=== PATIENT | female | born 1980 | race Caucasian/White ===

== ENCOUNTER 2016-10-07 17:22 | Outpatient (CLI) | payer MEDICAID ==
[~2016-10-07] VITALS: Ht 147.3 cm; Wt 87.5 kg
[~2016-10-07 17:22] MED LIST: ACET500T98 PO; AMO500 PO
--- NOTE | 2016-10-07 17:51 | RADRPT ---
PROCEDURE: US biophysical profile. Ultrasound of the cervix. CLINICAL INDICATION: Abnormal vaginal bleeding. TECHNIQUE: Multiple sonographic images of the uterus were obtained. Transvaginal sonogra phy of the cervix was also performed. The images were reviewed on a PACS workstation. COMPARISON: No prior studies are available for comparison. FINDINGS: There is a single live intrauterine gestation. heart rate is 134 beats per minute. The position is cephalic. The placenta is anterior grade II with no abruption or previa. The SCOTTY is 11.8 cm. (Normal = 5-20 cm.) Transvaginal cervical length is 4.4 cm. Breathing Movement: 2 Gross Body Movement: 2 Tone: 2 Qualitative Amniotic Fluid Volume: 2 TOTAL: 8 IMPRESSION: 1. The biophysical score is 8/8. 2. Cervical length is 4.4 cm. RPTAT: QQ .Brian Santacruz MD, MD Date Time Electronically viewed and signed by .Brian Santacruz MD, on 10/07/2016 17:50 .R/
[2016-10-07 18:06] VITALS: Ht 147.3 cm; Wt 87.5 kg
[2016-10-07] MEDS ORDERED: PRENAT PO (18:08)
[2016-10-07 19:01] LABS: ADD UMIC YES; URINE BILIRUBIN (Dip) NEGATIVE (NEGATIVE); URINE BLOOD (Dip) TRACE (NEGATIVE); URINE COLOR LT. YELLOW (YELLOW); URINE GLUCOSE (Dip) NEGATIVE (NEGATIVE); URINE KETONES (Dip) NEGATIVE (NEGATIVE); URINE LEUKOCYTE ESTERASE (Dip) 1+ (NEGATIVE); URINE NITRITE (Dip) NEGATIVE (NEGATIVE); URINE TOTAL PROTEIN (Dip) NEGATIVE (NEGATIVE); URINE UROBILINOGEN (Dip) 0.2 E.U./dL (0.1-1.0)
[2016-10-07 19:14] LABS: BACTERIA,URINE FEW; SQUAMOUS EPITHELIAL CELL,UR MODERATE
--- NOTE | 2016-10-07 20:31 | TRIAGE ---
OB Triage Datetime Report Generated by CPN: 10/07/2016 20:30 Datetime: 10/07/2016 19:52 Vaginal Exam Membrane Status: Intact Datetime: 10/07/2016 19:24 Maternal Assessment Level of Consciousness: Fully Conscious Headache: Denies Blurred Vision: No Nausea/Vomiting: Denies RUQ Epigastric Pain: Denies Monitor Mode: External Pattern: Normal: <= 5 Contractions in 10 Minutes Resting Tone [place]: Relaxed Heart Rate FHR Baseline Rate: 140 Monitor Mode: External US FHR Baseline Changes: No Baseline Change Variability: Moderate 6-25 bpm Accelerations: 15X15 Decelerations: None Category: Category I Pain Assessment Pain Scale: 0 Pain Presence: None/Denies Pain Type: N/A Datetime: 10/07/2016 18:03 Stage of : OB Triage Assessment Type: Triage Maternal Assessment Level of Consciousness: Fully Conscious DTR's/Clonus: DTRs 2+; No Clonus Headache: Denies Blurred Vision: No Respiratory Effort: Unlabored; Regular Rhythm; Equal Expansion Breath Sounds, Left: Clear and Equal Breath Sounds, Right: Clear and Equal Nausea/Vomiting: Denies RUQ Epigastric Pain: Denies Facial Edema: None Temperature Route: Axillary Fall Risk Assessment History of Falling: (0) No Secondary Diagnosis: (0) No Ambulatory Aid: (0) Bedrest/Nurse Assist IV Therapy: (0) No Gait: (0) Normal/Bedrest/Immobile Mental Status: (0) Oriented to Own Ability Fall Score: 0 Fall Risk Score Definition: No Risk: No action required Labor Evaluation Frequency: 0 Monitor Mode: External Pattern: Normal: <= 5 Contractions in 10 Minutes Resting Tone [place]: Relaxed Heart Rate FHR Baseline Rate: 135 Monitor Mode: External US Variability: Moderate 6-25 bpm Decelerations: None Category: Category I Pain Assessment Pain Scale: 4 Pain Presence: Intermittent Pain Type: Cramping Pain Location: Abdomen Pain Goal: 3 Pain Relief Measures: Comfort Measures Datetime: 10/07/2016 17:58 Time of Arrival: 10/07/2016 17:10 EGA: 30.6 Arrived By: Ambulatory Arrived From: Dr. Office Chief Complaint: SENT FROM DR OFFICE TO EVALUATE FOR VAGINAL BLEEDING. DENIES LEAKING OF FLUID, S TATES SOME INTERMITTENT PAIN IN LOWER ABDOMINAL AREA. HX OF SHORT CERVIX AND BLEEDING WITH PREVIOUS PREGNANCIES Movement: Present Contractions: Denies/Absent Rupture of Membranes: Denies Vaginal Bleeding: Scant Vaginal Discharge: Denies Recent Sexual Intercouse: Denies Abdominal Trauma: Not Applicable Patient Complaints: Cramping Time Provider Notified: 10/07/2016 17:30 Provider Notified: WESTLEY Initial Plan: MONITOR, BPP/CL, PLACENTA
--- NOTE | 2016-10-07 22:07 | QN ---
Documentation Comment 36 years old with IUP at 31 weeks was sent from the clinic after she was seen today and reported to have spotting on and off for the past 3 days. Per patient had intercouse the day prior to her spotting day that started and continued on and off for the past 3 days and now stopped since this morning. She denies any LOF or contractions. reports some lower bilateral pain in the groins. She reports history of contractions in one of her prior pregnancies, received a dose of shot that stopped contractions and she delivered both prior pregnancies in [facility] at 40 weeks, [place]: A&O, NAD Abdomen: soft non tender, Fundal height is appropriate for [place] Extremities: no calf tenderness, no click, no edema CL: 4.4 cm Images reviewe BPP: 05/04 RH positive Urine Results - 72 Hrs Test 10/07/16 18:10 Urine Bacteria FEW Urine Bilirubin NEGATIVE (NEGATIVE) Urine Clarity SLIGHTLY CLOUDY (CLEAR) Urine Color LT. YELLOW (YELLOW) Urine Glucose NEGATIVE% (NEGATIVE) Urine Hemoglobin TRACE (NEGATIVE) Urine Ketones NEGATIVE (NEGATIVE) Urine Leukocyte Esterase 1+ (NEGATIVE) H Urine Microscopic RBC 2-5/HPF (0) Urine Microscopic WBC 2-5/HPF (0) Urine Nitrite NEGATIVE (NEGATIVE) Urine Specific [place] 1.025 (1.003-1.030) Urine Squamous Epithelial Cells MODERATE Urine Total Protein NEGATIVE (NEGATIVE) Urine Urobilinogen 0.2 E.U./dL (0.1-1.0) Urine pH 6.0 (5.0-9.0) SSE: No blood in the vault. cervix looks closed and long There is a moderate size ectropion on the cervix NST: No contractions on the monitor Cat 1 tracing. Appropriate for [place] Urine Results - 72 Hrs Test 10/07/16 18:10 Urine Bacteria FEW Urine Bilirubin NEGATIVE (NEGATIVE) Urine Clarity SLIGHTLY CLOUDY (CLEAR) Urine Color LT. YELLOW (YELLOW) Urine Glucose NEGATIVE% (NEGATIVE) Urine Hemoglobin TRACE (NEGATIVE) Urine Ketones NEGATIVE (NEGATIVE) Urine Leukocyte Esterase 1+ (NEGATIVE) H Urine Microscopic RBC 2-5/HPF (0) Urine Microscopic WBC 2-5/HPF (0) Urine Nitrite NEGATIVE (NEGATIVE) Urine Specific [place] 1.025 (1.003-1.030) Urine Squamous Epithelial Cells MODERATE Urine Total Protein NEGATIVE (NEGATIVE) Urine Urobilinogen 0.2 E.U./dL (0.1-1.0) Urine pH 6.0 (5.0-9.0) PROCEDURE: US biophysical profile. Ultrasound of the cervix. CLINICAL INDICATION: Abnormal vaginal bleeding. TECHNIQUE: Multiple sonographic images of the uterus were obtained. Transvaginal sonography of the cervix was also performed. The images were reviewed on a PACS workstation. COMPARISON: No prior studies are available for comparison. FINDINGS: There is a single live intrauterine gestation. heart rate is 134 beats per minute. The position is cephalic. The placenta is anterior grade II with no abruption or previa. The SCTOTY is 11.8 cm. (Normal = 5-20 cm.) Transvaginal cervical length is 4.4 cm. Breathing Movement: 2 Gross Body Movement: 2 Tone: 2 Qualitative Amniotic Fluid Volume: 2 TOTAL: 8 IMPRESSION: 1. The biophysical score is 8/8. 2. Cervical length is 4.4 cm. RPTAT: QQ Assessment: IUP at 31 weeks Post coital spotting , cervical ectropion RH postitve No evidence of previa or abruption No evidence of PTL DC home Strict labor precaution and kick counts follow up with her OB clinic in 2-3 days Patient verbalized understanding HANNY HYDE MD Oct 07, 2016 22:07
== END 2016-10-07 20:21 | disposition home or self-care (01) ==
LOC: OBT 17:22 → L-D 17:24 → OBT 20:21
PROVIDERS: ATTEND Obstetrics & Gynecology
DX: O26.853 Spotting complicating pregnancy, third trimester (principal); N93.0 Postcoital and contact bleeding; N86 Erosion and ectropion of cervix uteri; O60.03 Preterm labor without delivery, third trimester; O09.523 Supervision of elderly multigravida, third trimester; Z3A.31 31 weeks gestation of pregnancy
CPT/HCPCS: 76817; 76818; 81001; Z7500; 81003; G0463

== ENCOUNTER 2017-03-19 09:41 | Observation (INO) | payer MEDICAID ==
[2017-03-18 14:14] VITALS: Ht 149.9 cm; Wt 85.0 kg
[2017-03-19] VITALS (27 sets, daily range): BP systolic 106–137; BP diastolic 59–88; PULSE 56–84; RESP 12–25
[~2017-03-19] VITALS: Ht 149.9 cm; Wt 85.0 kg
[~2017-03-19 09:41] MED LIST changes: +ACETAMINOPHEN 1000 MG/100 ML IVPB ONE; +LIDOCAINE 2% (SDV) 5 ML INJ ONE; +PRENAT PO
[2017-03-19] MEDS ORDERED: BUPIVACAINE 0.25%/EPI (SDV) 30 ML INJ ONE (13:18)
[2017-03-19] MEDS ORDERED: PROPOFOL 60 ML ONE (13:24)
[2017-03-19] MEDS ORDERED: ROCURONIUM 50 MG INJ ONE (13:27)
[2017-03-19] MEDS ORDERED: FENTAnyl 50 MCG/ML VIAL ONE ×2 (13:28→13:51)
[2017-03-19] MEDS ORDERED: DEXAMETHASONE 4 MG/ML 1 ML INJ ONE (13:41)
[2017-03-19] MEDS ORDERED: KETOROLAC 30 MG INJ ONE (13:42)
[2017-03-19] MEDS ORDERED: PROPOFOL 20 ML ONE ×2 (14:22)
[2017-03-19] MEDS ORDERED: ONDANSETRON 4 MG INJ ONE ×2 (14:23→14:43)
--- NOTE | 2017-03-19 14:39 | PDOCDIS ---
Discharge Instructions CONDITION Patient Condition: Good HOME CARE INSTRUCTIONS: Diet Instructions: Regular ACTIVITY: Activity Restrictions: Slowly Increase Activity Rest between Activity Do not operate Machinery Bathing Restrictions: Shower FOLLOW UP/APPOINTMENTS Follow-up Plan Appointment clinic for postop follow-up in 1 week ORION CHRISTY MD Mar 19, 2017 14:39
[2017-03-19] MEDS ORDERED: MEPERIDINE 25 MG INJ ONE (14:43)
--- NOTE | 2017-03-19 14:43 | DS ---
Date/Time of Note Date/Time of Note DATE: 03/19/17 TIME: 14:41 Discharge Summary Admission/Discharge Info Admit Date/Time March 19, 2017 at 0 941 Discharge Date/Time March 20, 2017 at 8 AM Discharge Diagnosis Post minilaparotomy bilateral tubal ligation Procedures Minilaparotomy bilateral tubal ligation Hx of Present Illness 4 para 3 requests voluntary sterilization bilateral tubal ligation Hospital Course Satisfactory Home Meds Active Scripts Acetaminophen (Acetaminophen) 500 Mg Tablet, 500 MG PO Q6 Y for PAIN LEVEL 1-5 for 5 Days, #30 TAB Prov:CHIVO FREGOSO P ROBOT TECHNICIAN 07/19/16 Amoxicillin* (Amoxicillin*) 500 Mg Cap, 1 CAP PO BID, #20 CAP Prov:CHIVO FREGOSO P ROBOT TECHNICIAN 07/19/16 Reported Medications Multivit/Min/Fol Ac/Iron/Pren* ( S*) 1 Tab Tab, 1 TAB PO DAILY, TAB 10/07/16 Follow-up Plan Appointment clinic in 1 week for post operative check Primary Care Provider Care Physician No Primary Time spent on discharge: < 30 minutes ORION CHRISTY MD Mar 19, 2017 14:43
--- NOTE | 2017-03-19 14:47 | OPR ---
DATE OF OPERATION: PREOPERATIVE DIAGNOSIS: Request for voluntary sterilization, bilateral tubal ligation. POSTOPERATIVE DIAGNOSIS: Request for voluntary sterilization, bilateral tubal ligation. OPERATION PERFORMED: Minilaparotomy, bilateral tubal ligation. SURGEON: Orion Alcocer MD ANESTHESIA: General. ANESTHESIOLOGIST: DETAILS OF THE PROCEDURE: Under satisfactory general anesthesia the patient was prepped and draped and placed in the supine position. A small 2-inch Pfannenstiel incision was made, the incision fung ied through the subcutaneous tissue. Bleeders were brought under control with electrocautery. Fasc ia was incised to the length of the incision. Rectus muscle was divided in the midline. Peritoneum was exposed, entered through a transverse incision. Exploration of the abdomen revealed a normal s ize uterus, normal-appearing tubes and ovaries. Right fallopian tube was identified and the ampulla r section of the tube was grasped by a Tory. A loop was made. Suture material was used, #0 plai n catgut, was reinforced with the same suture material. The top of the loop 3/4 of an inch was exci sed. The cut end of the tube was cauterized and the specimen submitted to pathology. The same proc edure was performed for the opposite side. At this point in time the peritoneal cavity was irrigate d with warm saline. Sponge, needle and instrument were reported to be correct. Abdominal peritoneu m was closed with 2-0 chromic catgut. Rectus muscle was approximated with a few interrupted 2-0 chr omic catgut. Fascia was closed with #0 PDS in continuous fashion. Subcutaneous tissue was approxim ated with interrupted 2-0 chromic catgut. Skin was closed with 3-0 Monocryl subcuticular. Estimate d blood loss was less than 5 mL. The patient tolerated the procedure well, was transferred to the ecovery room in good condition. Dictated By: ORION GARCIA/LIANA Conf#: [id number] DID#: [id number]
[2017-03-19] MEDS ORDERED: FENTAnyl 50 MCG/ML VIAL IV PRN ×3 (15:00)
[2017-03-19] MEDS ORDERED: hydrALAzine 20 MG INJ IV PRN (15:00)
[2017-03-19] MEDS ORDERED: ONDANSETRON 4 MG INJ IV PRN (15:00)
[2017-03-19] MEDS ORDERED: OXYCODONE/ACETAMINOPHEN (5/325) TAB PO PRN ×2 (15:00)
[2017-03-19] MEDS ORDERED: MEPERIDINE 25 MG INJ IV PRN (15:00)
[2017-03-19] MEDS ORDERED: DIPHENHYDRAMINE 50 MG INJ IV PRN (15:00)
[2017-03-19] MEDS ORDERED: EPHEDrine SULFATE 50 MG/5 ML SYG IV PRN (15:00)
[2017-03-19] MEDS ORDERED: LABETALOL HCL 20MG INJ IV PRN (15:00)
[2017-03-19] MEDS ORDERED: METOCLOPRAMIDE 10 MG INJ IV PRN (15:00)
[2017-03-19] MEDS ORDERED: HYDROmorphONE (0.2 MG/ML) 10ML SYG IV PRN ×2 (15:00)
[2017-03-19] MEDS: HYDROmorphONE (0.2 MG/ML) 10ML SYG IV PRN ×2 (15:00→15:08)
[2017-03-19] MEDS ORDERED: BUTORPHANOL 2 MG INJ IV PRN (15:30)
== END 2017-03-20 08:00 | disposition home or self-care (01) ==
LOC: SDS 09:41 → REC 15:07 → SDS 15:07 → MS1 16:50
PROVIDERS: ADMIT Obstetrics & Gynecology; ATTEND Obstetrics & Gynecology
DX: Z30.2 Encounter for sterilization (principal); E66.01 Morbid (severe) obesity due to excess calories; Z68.37 Body mass index [BMI] 37.0-37.9, adult
CPT/HCPCS: 58600; 88302; J0131; J1100; J1170; J1885; J2175; J2405; J3010; Z7500; Z7512; Z7610; 99217; G0378

== ENCOUNTER 2019-04-17 19:53 | Emergency (ER) | payer MEDICAID, OTHER ==
[~2019-04-17] VITALS: Ht 154.9 cm; Wt 92.0 kg
[~2019-04-17 19:53] MED LIST changes: -ACETAMINOPHEN 1000 MG/100 ML IVPB ONE; -AMO500 PO; +CEPH-443 PO; +HYDR-4011 PO; +IBUP-1542 PO; -LIDOCAINE 2% (SDV) 5 ML INJ ONE
[2019-04-17 20:08] VITALS: Ht 154.9 cm; Wt 92.0 kg
[2019-04-17] MEDS ORDERED: KETOROLAC 30 MG INJ IV STA (22:18)
[2019-04-17] MEDS ORDERED: SOD CHLORIDE 0.9% 1,000 ML IV STA (22:18)
[2019-04-17] MEDS ORDERED: ONDANSETRON 4 MG INJ IV STA (22:18)
--- NOTE | 2019-04-17 22:35 | ERD ---
ER Documentation Chief Complaint Chief Complaint left upper abdominal pain x 1 week HPI 38-year-old female presents complaint of upper left abdominal pain for the past week. Patient states the pain is gotten more intense last couple days. States that the pain is made worse with palpation. States she also has some nausea. Denies any history of abdominal problems. Denies any nausea, vomiting, fevers, chills, vomiting, dysuria, hematuria, cough, chest pain. ROS All systems reviewed and are negative except as per history of present illness. Medications Home Meds Active Scripts Ibuprofen* (Motrin*) 600 Mg Tab, 600 MG PO Q6H PRN for PAIN AND OR ELEVATED TEMP, #30 TAB Prov:MARÍA MONSIVAIS 04/18/19 Hydrocodone/Acetaminophen ([place] 5-325 Tablet) 1 Each Tablet, 1-2 TAB PO Q6H PRN for PAIN, #15 TAB Prov:MARÍA MONSIVAIS 04/18/19 Cephalexin* (Keflex*) 500 Mg Capsule, 500 MG PO BID for 14 Days, CAP Prov:MARÍA MONSIVAIS 04/18/19 Acetaminophen (Acetaminophen) 500 Mg Tablet, 500 MG PO Q6 PRN for PAIN LEVEL 1-5 for 5 Days, #30 TAB Prov:MANAGUELOD,CHIVO P HORSE RACING ANALYST 07/19/16 Reported Medications Multivit/Min/Fol Ac/Iron/Pren* ( S*) 1 Tab Tab, 1 TAB PO DAILY, TAB 10/07/16 Allergies Allergies: Coded Allergies: No Known Allergy (Unverified , 10/07/16) PMhx/Soc Medical and Surgical Hx: pt denies Medical Hx, pt denies Surgical Hx History of Surgery: No Anesthesia Reaction: No Hx Neurological Disorder: No Hx Respiratory Disorders: No Hx Cardiac Disorders: No Hx Psychiatric Problems: No Hx Miscellaneous Medical Probl: No Hx Alcohol Use: No Hx Substance Use: No Hx Tobacco Use: No Smoking Status: Never smoker FmHx Family History: No diabetes, No coronary disease, No other Physical Exam Vitals Vital Signs Date Temp Pulse Resp B/P (MAP) Pulse Ox O2 O2 Flow FiO2 Time Delivery Rate 04/18/19 97.6 75 18 105/62 100 03:22 (76) 04/17/19 98.4 72 18 106/72 100 20:08 (83) Physical Exam Const: No acute distress Head: Atraumatic Eyes: Normal Conjunctiva ENT: Normal External Ears, Nose and Mouth. Neck: Full range of motion. No meningismus. Resp: Clear to auscultation bilaterally Cardio: Regular rate and rhythm, no murmurs Abd: Tenderness to palpation in the upper left quadrant. Negative McBurney's. Negative Monae's. Skin: No petechiae or rashes Back: No midline or flank tenderness Ext: No cyanosis, or edema Neur: Awake and alert Psych: Normal Mood and Affect Result Diagram: 04/17/19222904/17/192229 Results 24 hrs Laboratory Tests Test 04/17/19 22:07 04/17/19 22:14 04/17/19 22:16 04/17/19 22:30 Urine Color YELLOW Urine Clarity CLOUDY Urine pH 5.0 Urine Specific 1.026 [place] Urine Ketones NEGATIVE mg/dL Urine Nitrite NEGATIVE mg/dL Urine Bilirubin NEGATIVE mg/dL Urine NEGATIVE mg/dL Urobilinogen Urine Leukocyte 3+ [place]/ul Esterase Urine Microscopic 69 /HPF RBC Urine Microscopic 136 /HPF WBC Urine Squamous MODERATE /HPF Epithelial Cells Urine Bacteria FEW /HPF Urine Hemoglobin 3+ mg/dL Urine Glucose NEGATIVE mg/dL Urine Total NEGATIVE mg/dl Protein POC Beta HCG, NEGATIVE Qualitative Bedside Urine pH 5.5 (LAB) Bedside Urine Trace Protein (LAB) Bedside Urine Negative Glucose (UA) Bedside Urine Negative Ketones (LAB) Bedside Urine 3+ Blood Bedside Urine Negative Nitrite (LAB) Bedside Urine 2+ Leukocyte Esteras e (L White Blood Count 9.0 10^3/ul Red Blood Count 4.29 10^6/ul Hemoglobin 11.5 g/dl Hematocrit 36.6 % Mean Corpuscular 85.3 fl Volume Mean Corpuscular 26.8 pg Hemoglobin Mean Corpuscular 31.4 g/dl Hemoglobin Concen t Red Cell 14.2 % Distribution Width Platelet Count 399 10^3/UL Mean Platelet 10.0 fl Volume Immature 0.300 % Granulocytes % Neutrophils % 57.9 % Lymphocytes % 34.2 % Monocytes % 5.0 % Eosinophils % 2.2 % Basophils % 0.4 % Nucleated Red 0.0 /100WBC Blood Cells % Immature 0.030 10^3/ul Granulocytes # Neutrophils # 5.2 10^3/ul Lymphocytes # 3.1 10^3/ul Monocytes # 0.5 10^3/ul Eosinophils # 0.2 10^3/ul Basophils # 0.0 10^3/ul Nucleated Red 0.0 10^3/ul Blood Cells # Sodium Level 139 mmol/L Potassium Level 4.0 mmol/L Chloride Level 104 mmol/L Carbon Dioxide 26 mmol/L Level Anion Gap 9 Blood Urea 18 mg/dl Nitrogen Creatinine 0.58 mg/dl Est Glomerular > 60 mL/min Filtrat Rate mL/min Glucose Level 102 mg/dl Calcium Level 9.3 mg/dl Total Bilirubin 0.3 mg/dl Direct Bilirubin 0.00 mg/dl Indirect 0.3 mg/dl Bilirubin Aspartate Amino 19 IU/L Transf (AST/SGOT) Alanine 22 IU/L Aminotransferase (ALT/SGPT) Alkaline 99 IU/L Phosphatase Total Protein 7.5 g/dl Albumin 4.2 g/dl Globulin 3.30 g/dl Albumin/Globulin 1.27 Ratio Lipase 83 U/L Current Medications Medications Dose Sig/Onel Start Time Status Last (Trade) Ordered Route PRN Stop Time Admin Dose Reason Admin Sodium 1,000 ml @ Q1H STAT 04/17/19 DC 04/17/19 Chloride 1,000 mls/hr IV 22:18 22:47 04/17/19 23:17 Ondansetron 4 mg ONCE STAT 04/17/19 DC 04/17/19 HCl (Zofran IV 22:18 22:49 Inj) 04/17/19 22:20 Ketorolac 30 mg ONCE STAT 04/17/19 DC 04/17/19 Tromethamine IV 22:18 22:49 (Toradol) 04/17/19 22:20 IV Flush 10 ml STK-MED 04/17/19 DC 04/17/19 (NS 10 ml) ONCE .ROUTE 23:51 23:51 04/17/19 23:52 Sodium 100 ml @ ud STK-MED 04/17/19 DC 04/17/19 Chloride ONCE .ROUTE 23:52 23:52 04/17/19 23:53 Iohexol 150 ml STK-MED 04/17/19 DC 04/17/19 (Omnipaque ONCE .ROUTE 23:52 23:52 300mg/ ml) 04/17/19 23:53 Ceftriaxone 50 ml @ ONCE ONCE 04/18/19 DC 04/18/19 Sodium 100 mls/hr IVPB 03:30 03:24 04/18/19 03:59 Procedures/MDM DIAGNOSTIC IMAGING REPORT Patient: JAD SERNA : 1980 Age: 38 Sex: F MR #: [id number] [facility] #: [id number] DOS: 04/17/19 2218 Ordering MD: MARÍA MONSIVAIS [facility] Room/Bed: PROCEDURE: CT Abdomen and Pelvis with contrast. CLINICAL INDICATION: Abdominal pain TECHNIQUE: CT scan of the abdomen and pelvis with contrast was performed on a multi-detector high-resolution CT scanner. The patient was scanned following intravenous administration of 100 ml Omnipaque-300 nonionic contrast. Coronal and sagittal reformatted images obtained from the axial source images. Images were reviewed on a high-resolution PACS workstation. Exam CTDI 21.63 mGy Exam DLP 1222.04 mGy-cm DICOM images are available. One or more of the following dose reduction techniques were utilized: 1.) Automated exposure control 2.) Adjustment of the mA +/- kV according to patient's size 3.) Use of iterative reconstruction technique. COMPARISON: None. FINDINGS: CT abdomen: LOWER THORAX: Lung bases are clear. LIVER AND GALLBLADDER: There is a 3.1 cm cyst within the right lobe of the liver. Liver and gallbladder are otherwise unremarkable. SPLEEN: Normal. PANCREAS: Normal. ADRENAL GLANDS: Normal. KIDNEYS: The kidneys enhance symmetrically. No hydronephrosis or abnormal perinephric fluid. VASCULATURE: Negative for aortic aneurysm or dissection. BOWEL AND MESENTERY: Stomach and small bowel are unremarkable. Small fat containing umbilical hernia. The appendix is not clearly visualized. There are no pericecal inflammatory changes. Large bowel is unremarkable. CT pelvis: The urinary bladder is unremarkable. Uterus and ovaries appear normal for age. There is no free fluid in the pelvis. Bones: Regional bones and superficial soft tissues are grossly unremarkable. IMPRESSION: 1. No acute process in the imaged abdomen or pelvis. 2. Appendix not clearly seen. No pelvic free fluid. 3. Small fat containing umbilical hernia. RPTAT: HJBB Physician Jordin Date Time Electronically viewed and signed by Physician Jordin on 04/18/2019 02:16 xB/ CC: MARÍA MONSIVAIS [id number] MDM: Patient CT results are within normal limits. Patient's UA positive for UTI so pt will be treated for possible pyelonephritis. Patient was treated with 1 g of ceftriaxone in the ER and discharged with 14 days of Keflex. I have low suspicion for acute coronary syndrome, AAA, mesenteric ischemia, lower lobe pneumonia, DKA, bowel perforation, cholecystitis, choledocholithiasis, ascending cholangitis, hepatic abscess, pancreatitis, PUD, splenic rupture, diverticulitis, pyelonephritis, nephrolithiasis, appendicitis, , , ectopic , PID, ovarian torsion or tubo-ovarian abscess. At this time, patient is stable for discharge and outpatient management. I have instructed the patient to follow-up with his/her primary care physician in 1-2 days. I have discussed with the patient the possibility of needing to see a specialist for further workup and imaging studies if symptoms persist. I have instructed the patient to promptly return to the ER for any new or worsening symptoms including but not limited to increased pain, fever, nausea, vomiting, weakness or LOC. The patient and/or family expressed understanding of and agreement with this plan. All questions were answered. Home care instructions were provided. Communication with patient both during the exam and instructions for discharge were performed with using a child care specialist . Patient gave verbal confirmation to the practitioner, through the child care specialist, that they understood everything that was being said to them. DISCLAIMER: Inadvertent spelling and grammatical errors are likely due to EHR/dictation s oftware use and do not reflect on the overall quality of patient care. Also, please note that the electronic time recorded on this note does not necessarily reflect the actual time of the patient encounter. Departure Diagnosis: Primary Impression: Pyelonephritis Condition: Stable MARÍA MONSIVAIS Apr 17, 2019 22:35
[2019-04-17] MEDS ORDERED: SOD CHLORIDE 0.9% 100 ML ONE (23:52)
[2019-04-17] MEDS ORDERED: IOHEXOL 300MG/ML 150 ML BTL ONE (23:52)
[2019-04-18 03:22] VITALS: BP 105/62; PULSE 75; RESP 18
[2019-04-18] MEDS ORDERED: CEFTRIAXONE 1 GM/50 ML (PMX) 50 ML IVPB ONE (03:30)
== END 2019-04-18 03:50 | disposition home or self-care (01) ==
LOC: FTE 19:53
DX: N12 Tubulo-interstitial nephritis, not specified as acute or chronic (principal)
CPT/HCPCS: 36415; 74177; 80053; 81001; 81025; 83690; 85025; 87086; 96365; 96375; J0696; J1885; J2405; J7030; Q9967; Z7502; Z7610; 81003